=== PATIENT | male | born 1940 | race Caucasian/White ===

== ENCOUNTER → 2018-11-21 | Outpatient (CLI) | payer MEDICARE, BC ==
[~2018-11-21] MED LIST: REGADENOSON 0.4 MG/5 ML SYRINGE ONE
== END | disposition home or self-care (01) ==
LOC: CFH 09:07
PROVIDERS: ATTEND Internal Medicine Cardiovascular Disease
DX: I25.10 Atherosclerotic heart disease of native coronary artery without angina pectoris (principal); Z98.61 Coronary angioplasty status; I25.2 Old myocardial infarction
CPT/HCPCS: 78452; 93017; A9502; J2785

== ENCOUNTER 2018-12-25 15:59 | Outpatient (CLI) | payer MEDICARE, BC | END 2018-12-25 23:59 | disposition home or self-care (01) | LOC: CFH 15:59 | PROVIDERS: ATTEND Internal Medicine Cardiovascular Disease | DX: I34.0 Nonrheumatic mitral (valve) insufficiency (principal) | CPT/HCPCS: 93306 ==

== ENCOUNTER 2019-01-20 09:18 | Observation (INO) | payer MEDICARE, BC ==
[~2019-01-20] VITALS: Ht 180.3 cm; Wt 104.3 kg
--- NOTE | 2019-01-20 09:32 | NUR ---
Pt brought in by EMS today with c/o left arm tingling, dizzy, light headed, and nauseated. Pt states symptoms began around 0800 and symptoms have since resolved. Pt states, "My left arm was almost painful it was tingling so much." Pt states home sbp was 190 and HR was at 93 at home. NADN. Pt denies cp, n/v/d, sob, loss of sensation, numbness, or tingling at this time. 20g PIV placed in right wrist prior to arrival. FSBG by EMS was 159. Pt connected to NIBP, steel tester, and SPO2 % monitor. All safety measures in place. Call light within reach.
[2019-01-20 10:11] LABS: BASOPHILS # (AUTO) 0.03 x10^3/uL (0-0.1); BASOPHILS % (AUTO) 1 % (0-1); EOSINOPHILS # (AUTO) 0.42 x10^3/uL (0-0.4); EOSINOPHILS % (AUTO) 8 % (1-7); LYMPHOCYTES # (AUTO) 1.49 x10^3/uL (1-3.4); LYMPHOCYTES % (AUTO) 28 % (22-44); MD NO; MEAN CORPUSCULAR HEMOGLOBIN 32.4 pg (27.5-34.5); MEAN CORPUSCULAR HGB CONC 34.1 g/dL (33.2-36.2); MEAN CORPUSCULAR VOLUME 94.9 fL (81-97); MEAN PLATELET VOLUME 9.2 fL (7.4-10.4); MONOCYTES # (AUTO) 0.58 x10^3/uL (0.2-0.8); MONOCYTES % (AUTO) 11 % (2-9); NEUTROPHILS % (AUTO) 53 % (42-75); PLATELET COUNT 191 x10^3/uL (130-400); RED BLOOD COUNT 4.43 x10^6/uL (4.38-5.82); RED CELL DISTRIBUTION WIDTH 12.2 % (9.4-14.8)
[2019-01-20 10:20] LABS: ALBUMIN 3.5 g/dL (3.4-5.0); ANION GAP 2 mmol/L (5-15); CALCIUM 8.3 mg/dL (8.5-10.1); CHLORIDE 112 mmol/L (98-107); CREATININE 0.91 mg/dL (0.7-1.3)
[2019-01-20 10:23] LABS: TROPONIN I < 0.015 ng/mL (0.000-0.045)
--- NOTE | 2019-01-20 12:00 | NUR ---
Provided report to ARCELIA Paz. All questions answered. Pt ready to transfer to floor from ED.
[2019-01-20] MEDS ORDERED: ACETAMINOPHEN 325 MG TABLET PO PRN (12:30)
[2019-01-20] MEDS ORDERED: LABETALOL 5 MG/ML SYRINGE IVPush PRN ×2 (12:30→14:00)
[2019-01-20 12:51] LABS: HCT (SEDRATE) 42.6 % (39.2-51.8)
--- NOTE | 2019-01-20 12:58 | NUR ---
Pt transfered to floor from ED and left with all personal belongings.
[2019-01-20 13:00] LABS: INTERNATIONAL NORMALIZED RATIO 1.02 (0.93-1.1); PROTHROMBIN TIME 10.7 Seconds (9.6-11.5)
[2019-01-20 13:16] VITALS: BP 173/95
[2019-01-20] MEDS: SODIUM CHLORIDE 0.9% 1,000 ML IV SCH ×2 (14:28→21:07)
[2019-01-20] MEDS: HEPARIN 5,000 UNITS/ML, 1ML SQ SCH ×2 (14:28→21:06)
[2019-01-20] MEDS: ASPIRIN 81 MG TABLET CHEW PO SCH (14:28)
[2019-01-20] MEDS ORDERED: GADOBUTROL 10 MMOL/10 ML PFS ONE (16:10)
[2019-01-20 19:25] VITALS: BP 124/67
[2019-01-20] MEDS ORDERED: ATORVASTATIN 80 MG TABLET PO SCH (21:00)
[2019-01-20] MEDS: CALCIUM CARBONATE 500 MG TABLET PO SCH (21:06)
[2019-01-20 22:28] VITALS: BP 148/75
[2019-01-20] MEDS ORDERED: ATOR20TA37 PO (23:04)
[2019-01-20] MEDS ORDERED: CLOP75TA PO (23:04)
[2019-01-20] MEDS ORDERED: DOXA2TAB9 PO (23:04)
[2019-01-20] MEDS ORDERED: DOXAZOSIN 2MG TABLET PO ONE (23:30)
[2019-01-21 02:10] VITALS: BP 151/77
[2019-01-21 04:13] VITALS: BP 167/78
[2019-01-21] MEDS: HEPARIN 5,000 UNITS/ML, 1ML SQ SCH ×2 (04:52→12:30)
[2019-01-21] MEDS: SODIUM CHLORIDE 0.9% 1,000 ML IV SCH (04:52)
[2019-01-21 05:19] LABS: BASOPHILS # (AUTO) 0.06 x10^3/uL (0-0.1); BASOPHILS % (AUTO) 1 % (0-1); EOSINOPHILS # (AUTO) 0.47 x10^3/uL (0-0.4); EOSINOPHILS % (AUTO) 6 % (1-7); LYMPHOCYTES # (AUTO) 2.64 x10^3/uL (1-3.4); LYMPHOCYTES % (AUTO) 35 % (22-44); MD NO; MEAN CORPUSCULAR HEMOGLOBIN 31.6 pg (27.5-34.5); MEAN CORPUSCULAR HGB CONC 33.3 g/dL (33.2-36.2); MEAN PLATELET VOLUME 9.6 fL (7.4-10.4); MONOCYTES # (AUTO) 0.69 x10^3/uL (0.2-0.8); MONOCYTES % (AUTO) 9 % (2-9); NEUTROPHILS # (AUTO) 3.69 x10^3/uL (1.8-6.8); NEUTROPHILS % (AUTO) 49 % (42-75); PLATELET COUNT 185 x10^3/uL (130-400); RED BLOOD COUNT 4.25 x10^6/uL (4.38-5.82); RED CELL DISTRIBUTION WIDTH 12.4 % (9.4-14.8)
[2019-01-21 05:26] LABS: CHLORIDE 113 mmol/L (98-107)
[2019-01-21 05:44] LABS: ALANINE AMINOTRANSFERASE 28 U/L (12-78); ALBUMIN 3.3 g/dL (3.4-5.0); ALKALINE PHOSPHATASE 81 U/L (45-117); ANION GAP 7 mmol/L (5-15); BILIRUBIN,TOTAL 0.9 mg/dL (0.2-1.0); CALCIUM 8.3 mg/dL (8.5-10.1); CREATININE 0.92 mg/dL (0.7-1.3)
[2019-01-21 07:16] VITALS: BP 148/81
[2019-01-21] MEDS: CALCIUM CARBONATE 500 MG TABLET PO SCH (08:32)
[2019-01-21] MEDS: ASPIRIN 81 MG TABLET CHEW PO SCH (08:33)
[2019-01-21] MEDS ORDERED: CLOPIDOGREL 75 MG TABLET PO SCH (09:00)
[2019-01-21] MEDS ORDERED: DOXAZOSIN 2MG TABLET PO SCH (09:00)
[2019-01-21] MEDS ORDERED: LISINOPRIL 20 MG TABLET PO SCH (09:00)
[2019-01-21] MEDS ORDERED: LISI-170 PO (13:08)
[2019-01-21] MEDS ORDERED: CALC-666 PO (13:08)
[2019-01-21] MEDS ORDERED: ASPI-515 PO (13:08)
[2019-01-21] MEDS ORDERED: ATOR-2 PO (13:08)
[2019-01-21 13:44] VITALS: BP 131/77
== END 2019-01-21 14:47 | disposition home or self-care (01) ==
LOC: ED 11:26 → INTOOBSV 11:31 → EDIP 11:31 → OBSVTOIN 11:31 → 4WST 13:29 → DCLOUNGE 01-21 14:06
PROVIDERS: ADMIT Hospitalist; ATTEND Hospitalist
DX: R42 Dizziness and giddiness (principal); R20.0 Anesthesia of skin; E78.00 Pure hypercholesterolemia, unspecified; E78.5 Hyperlipidemia, unspecified; E83.51 Hypocalcemia; R73.9 Hyperglycemia, unspecified; I10 Essential (primary) hypertension; I25.10 Atherosclerotic heart disease of native coronary artery without angina pectoris; Z79.02 Long term (current) use of antithrombotics/antiplatelets; Z86.73 Personal history of transient ischemic attack (TIA), and cerebral infarction without residual deficits; Z95.5 Presence of coronary angioplasty implant and graft
CPT/HCPCS: 36415; 70450; 70553; 80048; 80053; 82040; 84439; 84443; 84484; 85025; 85610; 85651; 85730; 93005; 93880; 96360; 96361; 96372; 97161; 97165; 97535; 99284; A9585; G0378; J1644; J7030

== ENCOUNTER → 2020-04-20 | Outpatient (CLI) | payer MEDICARE, BC ==
[~2020-04-20] MED LIST changes: +ASPI-515 PO; +ATOR-2 PO; +ATOR20TA37 PO; +CALC-666 PO; +CLOP75TA PO; +DOXA2TAB9 PO; +LISI-170 PO
== END | disposition home or self-care (01) ==
LOC: CFH 02-03 12:25
PROVIDERS: ATTEND Internal Medicine Cardiovascular Disease
DX: Z98.61 Coronary angioplasty status (principal)
CPT/HCPCS: 78452; 93017; A9502; J2785

== ENCOUNTER → 2021-08-12 | Outpatient (CLI) | payer MEDICARE, BC | END | disposition home or self-care (01) | LOC: CFH 12:23 | PROVIDERS: ATTEND Internal Medicine Cardiovascular Disease | DX: I21.19 ST elevation (STEMI) myocardial infarction involving other coronary artery of inferior wall (principal); I49.3 Ventricular premature depolarization | CPT/HCPCS: 78452; 93017; A9502; J2785 ==